=== PATIENT | female | born 1980 | race Caucasian/White ===

== ENCOUNTER 2020-09-30 10:52 | Outpatient (NON) | payer BC, SELFPAY ==
[2020-09-30 14:31] LABS: Influenza Control Positive
== END 2020-09-30 10:53 ==
LOC: ANHCOVIDDT 10:53
PROVIDERS: PCP Internal Medicine; Visit Provider Internal Medicine
DX: R68.89 Other general symptoms and signs (principal)
CPT/HCPCS: 87804

== ENCOUNTER 2020-10-08 10:19 | Outpatient (CLI) | payer BC, SELFPAY ==
--- NOTE | ~2020-10-08 | XR_ITS ---
XR chest 2V 10/08/2020 10:36 Indication: Bronchitis. Procedure: PA and lateral views of the chest Comparison: No prior studies for comparison. Findings: Right lower lobe infiltrates. Left lung clear. No pleural effusion, edema or pneumothorax. Heart size normal. Impression: 1: Right lower lobe infiltrates may represent atelectasis or developing pneumonia. Reviewed, dictated and finalized at location A. [employer]ORATORY TECHNICIAN Impression: 1: Right lower lobe infiltrates may represent atelectasis or developing pneumon ia.
== END 2020-10-08 10:20 | disposition home or self-care (01) ==
PROVIDERS: PCP Internal Medicine; Visit Provider Internal Medicine
DX: J40 Bronchitis, not specified as acute or chronic (principal); U07.1 COVID-19; R91.8 Other nonspecific abnormal finding of lung field
CPT/HCPCS: 71046

== ENCOUNTER 2021-03-26 07:49 | Outpatient (CLI) | payer BC, SELFPAY ==
[2021-03-26 08:34] LABS: Alanine Aminotransferase 27 U/L (4-35); Albumin Level 3.7 g/dL (3.5-5.1); Alkaline Phosphatase 151 U/L (38-126); Anion Gap 4 mmol/L (8-16); Aspartate Amino Transferase 22 U/L (14-36); Bilirubin,Total 0.6 mg/dL (0.2-1.3); Blood Urea Nitrogen 12 mg/dL (7-17); Carbon Dioxide 28 mmol/L (22-30); Chloride 102 mmol/L (98-107); Cholesterol 183 mg/dL (0-200); Estimated Glomerular Filt Rate > 60; Glucose 351 mg/dL (65-105); HDL Direct 42 mg/dL; Potassium 4.3 mmol/L (3.4-5.0); Sodium 134 mmol/L (137-145); Triglycerides 275 mg/dL (<150)
[2021-03-26 08:45] LABS: LDL Cholesterol Direct 93 mg/dL
[2021-03-26 08:46] LABS: Hemoglobin A1C 11.8 % (<5.7)
== END 2021-03-26 07:50 | disposition home or self-care (01) ==
PROVIDERS: PCP Internal Medicine; Visit Provider Internal Medicine
DX: R94.5 Abnormal results of liver function studies (principal); I10 Essential (primary) hypertension; E11.9 Type 2 diabetes mellitus without complications; Z13.220 Encounter for screening for lipoid disorders
CPT/HCPCS: 36415; 80053; 80061; 83036

== ENCOUNTER 2021-05-23 09:34 | Outpatient (CLI) | payer BC, SELFPAY ==
--- NOTE | ~2021-05-23 | XR_ITS ---
EXAMINATION: XR chest 2V EXAM DATE: 05/23/2021 09:52 INDICATION: R05 - Cough, bronchitis. TECHNIQUE: Frontal and lateral projections of the chest obtained and reviewed. Comparison is made to prior examination from 10/08/2020. FINDINGS: The lungs are clear, resolution of previously seen right middle lobe pneumonia. There are no pleural effusions. The cardiomediastinal silhouette is within normal limits. There is no pneumot horax suspected. The bones and soft tissues are unremarkable. IMPRESSION: No acute cardiopulmonary findings. Reviewed, dictated and finalized at location B.
== END 2021-05-23 09:35 | disposition home or self-care (01) ==
LOC: ANHIMG 09:40
PROVIDERS: PCP Internal Medicine; Visit Provider Internal Medicine
DX: R05 Cough (principal); J40 Bronchitis, not specified as acute or chronic
CPT/HCPCS: 71046

== ENCOUNTER 2021-10-07 08:10 | Outpatient (CLI) | payer BC, SELFPAY ==
[2021-10-07 09:07] LABS: Alanine Aminotransferase 19 U/L (4-35); Albumin Level 3.9 g/dL (3.5-5.1); Alkaline Phosphatase 127 U/L (38-126); Anion Gap 10 mmol/L (8-16); Aspartate Amino Transferase 19 U/L (14-36); Bilirubin,Total 1.1 mg/dL (0.2-1.3); Blood Urea Nitrogen 10 mg/dL (7-17); Calcium 8.8 mg/dL (8.4-10.2); Carbon Dioxide 24 mmol/L (22-30); Chloride 99 mmol/L (98-107); Cholesterol 180 mg/dL (0-200); Estimated Glomerular Filt Rate > 60; Glucose 336 mg/dL (65-110); HDL Direct 38 mg/dL; Potassium 3.9 mmol/L (3.4-5.0); Sodium 133 mmol/L (137-145); Triglycerides 228 mg/dL (<150)
[2021-10-07 09:18] LABS: LDL Cholesterol Direct 97 mg/dL
[2021-10-07 11:02] LABS: Hemoglobin A1C 10.9 % (<5.7)
== END 2021-10-07 08:11 | disposition home or self-care (01) ==
PROVIDERS: PCP Internal Medicine; Visit Provider Internal Medicine
DX: E11.9 Type 2 diabetes mellitus without complications (principal); E78.5 Hyperlipidemia, unspecified; I10 Essential (primary) hypertension
CPT/HCPCS: 36415; 80053; 80061; 83036

== ENCOUNTER 2022-11-09 09:50 | Outpatient (CLI) | payer BC, SELFPAY ==
[2022-11-09 10:41] LABS: Alanine Aminotransferase 28 U/L (6-35); Albumin Level 3.5 g/dL (3.5-5.1); Alkaline Phosphatase 119 U/L (38-126); Anion Gap 1 mmol/L (8-16); Aspartate Amino Transferase 27 U/L (14-36); Bilirubin,Total 0.5 mg/dL (0.2-1.3); Blood Urea Nitrogen 8 mg/dL (7-17); Calcium 8.1 mg/dL (8.4-10.2); Carbon Dioxide 31 mmol/L (22-30); Chloride 100 mmol/L (98-107); Cholesterol 163 mg/dL (0-200); Estimated Glomerular Filt Rate > 60; Glucose 364 mg/dL (65-110); HDL Direct 38 mg/dL; Hemoglobin A1C 10.2 % (<5.7); Potassium 4.2 mmol/L (3.4-5.0); Sodium 132 mmol/L (137-145); Triglycerides 221 mg/dL (<150)
[2022-11-09 10:51] LABS: LDL Cholesterol Direct 84 mg/dL
== END 2022-11-09 09:51 | disposition home or self-care (01) ==
LOC: ANHLAB 09:52
PROVIDERS: PCP Internal Medicine; Visit Provider Internal Medicine
DX: Z13.220 Encounter for screening for lipoid disorders (principal); E11.9 Type 2 diabetes mellitus without complications; I10 Essential (primary) hypertension
CPT/HCPCS: 36415; 80053; 80061; 83036

== ENCOUNTER 2023-05-03 10:07 | Outpatient (CLI) | payer BC, SELFPAY ==
[2023-05-03 11:06] LABS: Alanine Aminotransferase 22 U/L (6-35); Albumin Level 3.7 g/dL (3.5-5.1); Alkaline Phosphatase 98 U/L (38-126); Anion Gap 4 mmol/L (8-16); Aspartate Amino Transferase 20 U/L (14-36); Bilirubin,Total 0.7 mg/dL (0.2-1.3); Blood Urea Nitrogen 15 mg/dL (7-17); Calcium 8.2 mg/dL (8.4-10.2); Carbon Dioxide 26 mmol/L (22-30); Chloride 106 mmol/L (98-107); Cholesterol 160 mg/dL (0-200); Estimated Glomerular Filt Rate > 60; Glucose 194 mg/dL (65-110); HDL Direct 40 mg/dL; Potassium 4.2 mmol/L (3.4-5.0); Sodium 136 mmol/L (137-145); Triglycerides 151 mg/dL (<150)
[2023-05-03 11:17] LABS: LDL Cholesterol Direct 92 mg/dL
== END 2023-05-03 10:08 | disposition home or self-care (01) ==
PROVIDERS: PCP Family Medicine; Visit Provider Internal Medicine
DX: E11.9 Type 2 diabetes mellitus without complications (principal); I10 Essential (primary) hypertension; E78.5 Hyperlipidemia, unspecified
CPT/HCPCS: 36415; 80053; 80061

== ENCOUNTER 2023-05-06 09:50 | Outpatient (CLI) | payer BC, SELFPAY ==
[2023-05-06 13:07] LABS: Hemoglobin A1C 7.5 % (<5.7)
== END 2023-05-06 09:51 | disposition home or self-care (01) ==
PROVIDERS: PCP Family Medicine; Visit Provider Podiatrist Foot & Ankle Surgery
DX: E11.42 Type 2 diabetes mellitus with diabetic polyneuropathy (principal)
CPT/HCPCS: 36415; 83036

== ENCOUNTER 2023-05-19 07:51 | Outpatient (CLI) | payer BC, SELFPAY ==
--- NOTE | 2023-05-19 08:04 | ECG_ITS ---
Measurements Intervals [place] Rate: 69 P: 25 [place]: 165 QRS: 13 QRSD: 97 T: 27 QT: 396 QTc: 426 Interpretive Statements SINUS RHYTHM DELAYED PRECORDIAL R/S TRANSITION MINIMAL Q WAVES- INFERIOR LEADS BORDERLINE ECG NO PREVIOUS ECG AVAILABLE FOR COMPARISON Electronically Signed On 05-19-2023 8:14:14 CDT by Kevin Davis D.O.
== END 2023-05-19 07:52 | disposition home or self-care (01) ==
PROVIDERS: PCP Family Medicine; Visit Provider Podiatrist Foot & Ankle Surgery
DX: E11.9 Type 2 diabetes mellitus without complications (principal); R94.31 Abnormal electrocardiogram [ECG] [EKG]
CPT/HCPCS: 93005

== ENCOUNTER 2023-05-21 03:28 | Day surgery (SDC) | payer BC, SELFPAY ==
[2023-05-17 11:17] VITALS: BMI 35.9
--- NOTE | 2023-05-17 11:36 | PC.NURSE ---
Report to the Outpatient Waiting Room, entrance under the green pavilion located off [facility], at time _0600__ on date _05/21/23_. Planned Procedure Time: _0730___. Time changes happen often and if your time is changed the preop area will call you the afternoon before. - You and your visitor will be asked to self-screen and do not enter if you have any COVID symptoms. - A mask is optional within the hospital at this time. Patients may have clear liquids (water, carbonated beverages, clear teas, apple juice) until 3 hours prior to surgery with a maximum of 20 ounces. - No food from midnight until time of surgery. Take ONLY the following medications with a SIP of water the morning of surgery: __ALPRAZOLAM, AMLODIPINE, GABAPENTIN__ DO NOT STOP ANY OF YOUR OTHER PRESCRIPTION MEDICATIONS PRIOR TO SURGERY ?EXCEPT THE FOLLOWING Medications to discontinue per physician __NONE___ Date to take last dose__NONE___ Please no make-up, nail niuean, hairspray, perfume, deodorant, or body powder the day of surgery. No jewelry (including any body piercings) or valuables the day of surgery, leave them at home. Please take a shower or bath the night before, or the morning of, surgery with an antibacterial soap. Wear comfortable, loose fitting clothing. - Jewelry must be removed prior to entering the operating room. Rings and piercings that are not removed may be cut off. - The hospital will not accept responsibility for valuables. - Please leave all valuables, including medications, at home the day of surgery. If you are going home after surgery, a licensed delivery driver/customer service must drive you home. - NO public transportation without another adult if you receive anesthesia. - We recommend that an adult stay with you for 24 hours following discharge. - We also recommend that you do not drive, make important decision, drink alcoholic beverages, or take any drugs that were not prescribed by your health care provider for at least 24 hours after your discharge time. Follow any additional instructions given to you from your surgeon. If you or anyone in your household have experienced Covid symptoms in the past week, please notify your surgeon or the nurse liaison at the phone number below for possible testing. Telephone instructions given to _SANDRA and asked if any additional questions and then verbalized understanding. Patient advised to call surgeon office or pre surgery nurse liaison [phone] if any additional questions.
--- NOTE | 2023-05-20 12:52 | WPDANESEPPF ---
Anes - Initial Pre Proc Eval Procedure: Operation Date: 05/21/23 07:30 Proposed Procedures p Arthrodesis of First Metatarsal Phalangeal Joint Left Foot, Chanelle Shortening Second and Third Metatarsal Left Foot - Rupert Manrique JR, MD s Hammertoe Repair Second and Third Digits Left Foot - Rupert Manrique JR, MD Date/Time: 05/20/23 12:52 Surgeon: Rupert Manrique JR, MD Pre Op Diagnosis: Bunion LT Foot, Metatarsalgia (cont) Patient Data Age: 42 Gender: F Height: 1.83 m Weight: 120 kg Allergies Allergy/AdvReac Type Severity Reaction Status Date / Time bee venom protein (honey bee) Allergy Severe Anaphylaxis Verified 05/21/23 06:17 Latex, Natural Rubber Allergy Severe Anaphylaxis Verified 05/21/23 06:17 melon Allergy Severe Anaphylaxis Verified 05/21/23 06:17 hydrocodone Allergy Mild rash Verified 05/21/23 06:17 propoxyphene Allergy Mild rash Verified 05/21/23 06:17 Home Medications Medication Instructions Recorded Confirmed Type epinephrine 0.3 mg/0.3 mL 0.3 mg (0.3 mL) IM ONCE #2 ea 10/14/21 05/17/23 Rx injection, auto-injector (EpiPen) amlodipine 10 mg tablet 10 mg PO DAILY #90 tabs 03/25/22 05/21/23 Rx metformin 1,000 mg tablet 1,000 mg PO BID #180 tabs 11/27/22 05/21/23 Rx blood-glucose meter (Accu-Chek #1 ea 12/03/22 02/23/23 Rx Guide Glucose Meter) gabapentin 300 mg capsule 300 mg PO QHS 12/03/22 05/21/23 History blood sugar diagnostic (Accu-Chek #100 ea 12/04/22 02/23/23 Rx Guide test strips) lancets (Accu-Chek Softclix #200 ea 12/04/22 02/23/23 Rx Lancets) sitagliptin phosphate 100 mg 100 mg PO DAILY #30 tabs 02/23/23 05/21/23 Rx tablet (Januvia) tirzepatide 2.5 mg/0.5 mL 2.5 mg (0.5 mL) subcut WEEKLY 4 05/06/23 05/17/23 Rx subcutaneous pen injector weeks #2 mL (Mounjaro) alprazolam 2 mg tablet (Xanax) 2 mg PO .COMPLEX #70 tabs 05/20/23 05/21/23 Rx Patient hx anesthesia problems: none Family hx anesthesia problems: none Results Review: All pre-operative results and documents have been reviewed as part of the pre-operative evaluation. [facility] Past Medical History Medical History Close exposure to COVID-19 virus Essential (primary) hypertension Generalized anxiety disorder Neuropathy Type 2 diabetes mellitus without complication, without long-term current use of insulin Family History Family History Mother Patient's mother is in good health Father Patient's father is in good health Sibling Patient's sister is in good health Patient's brother is in good health Other Diabetes mellitus Social History Social History Smoking status: Never smoker Second hand tobacco smoke exposure: Yes Alcohol intake: never Substance use: never Substance use type: does not use Lack of Transportation: No Lack of Food: Never True Current Housing: I Have Housing Concerned About Future Housing: No Difficulty Paying Gas/Electric Bills: No Difficulty Paying for Meds: No Currently Unemployed: No Education: Master's Degree or Higher Difficulty w/ Childcare or Family Care: No Living arrangements: alone Spiritual care concerns: No Anes - Eval Final PreProcedure Day of Procedure 05/20/23 12:52 Patient weight: morbidly obese Heart: regular rate and rhythm Lungs: clear to auscultation and normal air movement Airway: Mallampati scale class II Neurological: alert and oriented Last oral intake: >/= 8 hours ASA classification: III Emergent: no Anesthetic plan: proceed Anesthesia type and monitoring: general LMA Results Review: All pre-operative results and documents have been reviewed as part of the pre-operative evaluation. Informed Consent: The patient's anesthetic plan and its attendant risks and benefits were discussed with the patient/family/POA. Questions were solicited
[2023-05-21] VITALS (10 sets, daily range): BP systolic 120–181; BP diastolic 70–95; PULSE 67–87; RESP 10–20; TEMP 36.3–36.6; O2SAT 99–100
--- NOTE | ~2023-05-21 | XR_ITS ---
EXAMINATION: XR surgery orthopedic DATE: 05/21/2023 09:15 INDICATION: Left foot surgery. TECHNIQUE: 2 intraoperative fluoroscopic views of left foot were obtained. I was not present. Fluoros copy exposure time was 17 seconds. COMPARISON: None. FINDINGS: There are changes of arthrodesis of first metatarsophalangeal joint with dorsal plate and s crews. There is resection of the heads of the second and third metatarsals. There are wires overlying the phalanges and metatarsals of the second and third rays with implants at the proximal interphalan geal joints. IMPRESSION: 1. Surgical changes of left foot. Reviewed, dictated and finalized at location A.
[2023-05-21] MEDS: LACTATED RINGERS 1,000 ML 30 ML IV CONT ×2 (06:45→09:45)
[2023-05-21 06:54] LABS: Glucose Point of Care 188 mg/dl (65-105)
--- NOTE | 2023-05-21 07:18 | WPDHPUPDATE1 ---
History and Physical Update Update Date/Time: 05/21/23 07:18 History and Physical has been reviewed, including an updated exam of the patient. There are NO changes in the patient's condition. Risks, benefits, and alternatives have been discussed and questions answered. Patient agrees to proceed with procedure.
[2023-05-21] MEDS: ceFAZolin 3 GM/D5W 100 ML 100 ML IVPB (07:28)
[2023-05-21] MEDS: LIDOCAINE HCL 2% LOCAL INJ 20 ML VIAL 10 ML INFILTRATE (07:56)
--- NOTE | 2023-05-21 09:35 | W.PM.PROC2 ---
Procedure Note - Detailed Date of Procedure 05/21/23 Pre-op Diagnosis 1. Bunion left foot 2. Metatarsalgia second and third metatarsal phalangeal joints left foot with dislocated digits 3. Hammertoe deformity second and third digits left foot Post-op Diagnosis Same Procedure Performed 1. Arthrodesis of the first metatarsal phalangeal joint left foot 2. Second and third metatarsal head resection left foot 3. Hammertoe repair second and third digits left foot Surgeon Rupert Manrique JR, CARLOS Anesthesia General and Local Indications Painful left forefoot with bunion and dislocated second and third digits Findings significant joint degeneration to the second and third metatarsal phalangeal joints left foot synovitis Description of Procedure PROCEDURE IN DETAIL: Under mild sedation, the patient was brought into the operating room, placed on the operating table in supine yposition. A pneumatic ankle tourniquet was placed about the patient's ipsilateral ankle. Following general anesthesia I performed a Paula block proximal to the first through third metatarsals with 20cc's of 2% Lidocaine and 0.5% Marcaine plain in a one to one mix. Next, the foot was scrubbed, prepped, and draped in the usual aseptic manner. An Esmarch bandage was then used to exsanguinate the patient's foot and the pneumatic ankle tourniquet was then inflated. Surgery began in the following manner: Attention was directed to the dorsal medial aspect of the 1st metatarsophalangeal joint where there was a hallux valgus deformity noted with a prominent first metatarsal phalangeal joint dorsal medially. The incision was made starting along the central shaft of the 1st metatarsal and extending just proximal to the interphalangeal joint of the hallux. The incision was continued deep down through the subcutaneous tissues using sharp and blunt dissection. All bleeders were cauterized as necessary. At this point, the dissection was continued down to the level of the periosteum and capsular structures overlying the 1st metatarsophalangeal joint. A full length periosteum and capsular incision was made just medial to the extensor hallucis longus tendon. The periosteum and capsular structures were freed from the base of the proximal phalanx as well as the distal 1st metatarsal. At this point, the 1st metatarsophalangeal joint was identified. There was loss of articular cartilage to the head of the 1st metatarsal, mostly medially as well as the base of the proximal phalanx worse medially. There was mild broadening and hypertrophy of the 1st metatarsophalangeal joint. Utilizing a sagittal bone saw, the hypertrophied 1st metatarsal was resected dorsally, medially, and laterally. A power bur was used to make sure that there were no rough edges and also to further debride the hypertrophic 1st metatarsal. Next, a rongeur was used to resect the hypertrophic base of the proximal phalanx. At this point, the reamer system for the [email or web address] system was used to denude the degenerative cartilage from the head of the 1st metatarsal as well as the base of the proximal phalanx. The cartilage and subchondral bone were fully debrided utilizing the reamer system until healthy bleeding bone was noted. I flushed the surgery site with copious amounts of sterile saline. Next, a 2-0 drill bit was used to further fenestrate the head of the 1st metatarsal as well as the base of the proximal phalanx in order to promote fusion across the 1st metatarsophalangeal joint. Next, a 0.045 inch K-wire was driven from the medial aspect of the base of the proximal phalanx into the head of the 1st metatarsal in order to serve as temporary fixation. A large steel plate was used to make sure that the hallux was in a rectus position both in the sagittal plane as well as the frontal and transverse plane. Excellent position of the hallux was noted. Next, a CrossCHECK plate was placed atop the 1st metatarsophal
[2023-05-21] MEDS: fentaNYL CITRATE INJ (*CRX) 100 MCG/2 ML VIAL 25 MCG IV PUSH ×3 (10:19→10:27)
[2023-05-21] MEDS: ONDANSETRON INJ 4 MG/2 ML VIAL IV PUSH (10:52)
--- NOTE | 2023-05-21 11:10 | SUR.PHASEII ---
Dr. Gardiner aware of patient's elevated BP. No further treatment at this time.
[2023-05-21] MEDS: SCOPOLAMINE 1.5 MG PATCH TRANSDERM (11:17)
[2023-05-21] MEDS: HALOPERIDOL LACTATE 5 MG/ML VIAL 1 MG IV PUSH (11:22)
[2023-05-21] MEDS: oxyCODONE HCL (*CRX) 5 MG TAB IR PO (11:43)
[2023-05-21 13:30] LABS: Glucose Point of Care 182 mg/dl (65-105)
== END 2023-05-21 12:57 | disposition home or self-care (01) ==
PROVIDERS: PCP Family Medicine; Visit Provider Podiatrist Foot & Ankle Surgery
PROC: (CPT 28750; principal; 2023-05-21 07:30)
PROC: (CPT 28285; 2023-05-21 07:30)
DX: M21.612 Bunion of left foot (principal); M77.42 Metatarsalgia, left foot; M20.42 Other hammer toe(s) (acquired), left foot; M65.872 Other synovitis and tenosynovitis, left ankle and foot; M19.072 Primary osteoarthritis, left ankle and foot; M24.375 Pathological dislocation of left foot, not elsewhere classified; I10 Essential (primary) hypertension; E11.40 Type 2 diabetes mellitus with diabetic neuropathy, unspecified; F41.1 Generalized anxiety disorder; E66.01 Morbid (severe) obesity due to excess calories; Z68.39 Body mass index [BMI] 39.0-39.9, adult; Z79.84 Long term (current) use of oral hypoglycemic drugs; Z79.899 Other long term (current) drug therapy
CPT/HCPCS: 28285 ×2; 28750; 28112 ×2; 82948; 99199; A9270; C1713; C1776; J0690; J1630; J2250; J2405; J2704; J3010; J7120

== ENCOUNTER 2024-02-22 09:19 | Outpatient (CLI) | payer BC, SELFPAY ==
[2024-02-22 10:59] LABS: Hemoglobin A1C 8.3 % (<5.7)
== END 2024-02-22 09:20 | disposition home or self-care (01) ==
LOC: ANHLAB 09:22
PROVIDERS: PCP Internal Medicine; Visit Provider Podiatrist Foot & Ankle Surgery
DX: E11.40 Type 2 diabetes mellitus with diabetic neuropathy, unspecified (principal)
CPT/HCPCS: 36415; 83036

== ENCOUNTER 2024-03-30 13:24 | Outpatient (CLI) | payer BC, SELFPAY ==
--- NOTE | ~2024-03-30 | US_ITS ---
EXAMINATION: US venous doppler [facility] DATE: 03/30/2024 14:26 INDICATION: Bilateral lower limb pain and swelling TECHNIQUE: Grayscale ultrasound images without and with compression and Doppler ultrasound images of the bilateral lower extremity veins were obtained. COMPARISON: None. FINDINGS: The visualized portions of right common femoral vein, profunda (deep) femoral vein, femoral vein, pop liteal vein, posterior tibial veins, peroneal veins, gastrocnemius vein and greater saphenous vein ou tflow are patent. The visualized portions of left common femoral vein, profunda femoral vein, femoral vein, popliteal v ein, posterior tibial veins, gastrocnemius vein and greater saphenous vein outflow are patent. IMPRESSION: 1. No deep venous thrombosis in either lower limb. Reviewed, dictated and finalized at location A.
[2024-03-30 16:03] LABS: Alanine Aminotransferase 22 U/L (6-35); Albumin Level 3.8 g/dL (3.5-5.1); Alkaline Phosphatase 107 U/L (38-126); Anion Gap 5 mmol/L (4-12); Aspartate Amino Transferase 24 U/L (14-36); Bilirubin,Total 0.8 mg/dL (0.2-1.3); Blood Urea Nitrogen 19 mg/dL (7-17); Carbon Dioxide 27 mmol/L (22-30); Chloride 103 mmol/L (98-107); Cholesterol 184 mg/dL (0-200); Estimated Glomerular Filt Rate > 60; Glucose 180 mg/dL (65-110); HDL Direct 44 mg/dL; Potassium 3.9 mmol/L (3.4-5.0); Sodium 135 mmol/L (137-145); Triglycerides 267 mg/dL (<150)
[2024-03-30 16:15] LABS: LDL Cholesterol Direct 102 mg/dL
[2024-03-30 17:55] LABS: Creatinine Urine 161.2 mg/dL
[2024-03-30 18:40] LABS: MALB Creatinine Ratio > 707.2 mg/g (0-30); Microalbumin Urine Random > 1140.0 mg/L (0-16.7)
== END 2024-03-30 13:25 | disposition home or self-care (01) ==
PROVIDERS: PCP Internal Medicine; Visit Provider Internal Medicine
DX: R60.9 Edema, unspecified (principal); E11.9 Type 2 diabetes mellitus without complications
CPT/HCPCS: 36415; 80053; 80061; 82043; 93970

== ENCOUNTER 2024-06-13 08:58 | Outpatient (CLI) | payer BC, SELFPAY | END 2024-06-13 08:59 | disposition home or self-care (01) | LOC: ANHLAB 09:00 | PROVIDERS: PCP Internal Medicine; Visit Provider Internal Medicine | DX: E11.9 Type 2 diabetes mellitus without complications (principal) | CPT/HCPCS: 36415; 83036 ==

== ENCOUNTER 2024-09-07 09:46 | Outpatient (CLI) | payer BC, SELFPAY ==
--- NOTE | 2024-09-07 09:50 | ECG_ITS ---
Test Date: 2024-09-07 10:15:57 Measurements Intervals [place] Rate: 81 P: 21 [place]: 146 QRS: 33 QRSD: 100 T: 29 QT: 374 QTc: 435 Interpretive Statements SINUS RHYTHM POSSIBLE ANTERIOR MYOCARDIAL INFARCTION [30 ms Q WAVE IN V3/V4, OR R < 0.2 mV IN V4], OF INDETERMINATE AGE No previous ECG available for comparison Electronically Signed On 09-07-2024 15:25:29 CDT by Robert Jackson M.D.
[2024-09-07 10:32] LABS: Anion Gap 6 mmol/L (4-12); Blood Urea Nitrogen 19 mg/dL (7-17); Calcium 8.9 mg/dL (8.4-10.2); Carbon Dioxide 28 mmol/L (22-30); Chloride 103 mmol/L (98-107); Estimated Glomerular Filt Rate > 60; Glucose 167 mg/dL (65-110); Sodium 137 mmol/L (137-145)
== END 2024-09-07 09:47 | disposition home or self-care (01) ==
PROVIDERS: Anesthesiology; PCP Internal Medicine; Visit Provider Podiatrist Foot & Ankle Surgery
DX: E11.9 Type 2 diabetes mellitus without complications (principal); Z01.818 Encounter for other preprocedural examination
CPT/HCPCS: 36415; 80048; 93005

== ENCOUNTER 2024-09-08 01:06 | Day surgery (SDC) | payer BC, SELFPAY ==
[2024-09-06 08:37] VITALS: BMI 36.0
--- NOTE | 2024-09-06 08:43 | PC.NURSE ---
Report to the Outpatient Waiting Room, entrance under the green pavilion located off [facility], at time _0600_ on date _[id number]_. Planned Procedure Time: _0730_.? Time changes happen often and if your time is changed the preop area will call you the afternoon before. - You and your visitor will be asked to self-screen and do not enter if you have any COVID symptoms. Please call surgeon if you need to reschedule. - A mask is optional within the hospital at this time. Patients may have clear liquids (water, carbonated beverages, clear teas, apple juice) until 3 hours prior to surgery with a maximum of 20 ounces. - No food from midnight until time of surgery and no smoking Take only the following medications with a SIP of water on the morning of surgery: ___Gabapentin and if needed may take alprazolam____ DO NOT STOP ANY OF YOUR OTHER PRESCRIPTION MEDICATIONS PRIOR TO SURGERY EXCEPT THE FOLLOWING Medications to discontinue per physician __None Date to take last dose Please no make-up, nail emirati, hairspray, perfume, deodorant, or body powder the day of surgery.? No jewelry (including any body piercings) or valuables the day of surgery, leave them at home.? Please take a shower or bath the night before, or the morning of, surgery with an antibacterial soap.? Wear comfortable, loose fitting clothing.? - Jewelry must be removed prior to entering the operating room.? Rings and piercings that are not removed may be cut off. - The hospital will not accept responsibility for valuables.? - Please leave all valuables, including medications, at home the day of surgery. If you are going home after surgery, a licensed hazmat truck driver must drive you home.? - NO public transportation without another adult if you receive anesthesia. - We recommend that an adult stay with you for 24 hours following discharge. - We also recommend that you do not drive, make important decision, drink alcoholic beverages, or take any drugs that were not prescribed by your health care provider for at least 24 hours after your discharge time. Follow any additional instructions given to you from your surgeon. Telephone instructions given to __Bella__and asked if any additional questions and then verbalized understanding. Patient advised to call surgeon office or pre surgery nurse liaison [phone] if any additional questions.
[2024-09-08] VITALS (11 sets, daily range): BP systolic 120–161; BP diastolic 60–93; PULSE 70–86; RESP 12–20; TEMP 36.3–36.6; O2SAT 95–100
--- NOTE | ~2024-09-08 | XR_ITS ---
XR surgery orthopedic Indication: Arthrodesis of the right foot. TECHNIQUE: Fluoroscopy used during Arthrodesis of the right foot. performed by [Rupert Manrique Jr., CARLOS] on 05/21/2023. 17 seconds of fluoroscopy with 4 fluoroscopic images captured. FINDINGS: Correlate with procedure note. IMPRESSION: Fluoroscopy used during Arthrodesis of the right foot.. Reviewed, dictated and finalized at location B.
--- NOTE | 2024-09-08 06:41 | WPDANESEPPF ---
Anes - Initial Pre Proc Eval Procedure: Operation Date: 09/08/24 07:30 Proposed Procedures p Arthrodesis First Metatarsophalangeal Joint Right Foot, - Rupert Manrique Jr., DPM s Resection Second Through Fourth Metatarsal Heads Right Foot, Hammer Toe Repair Second Through Fourth Digits Right Foot - Rupert Manrique Jr., DPM Date/Time: 09/08/24 06:41 Surgeon: Rupert Manrique Jr., DPM Pre Op Diagnosis: bunion rt foot,metatarsalgia,hammer toes 2-4 rt Patient Data Age: 43 Gender: F Height: 1.83 m Weight: 120.5 kg Allergies Allergy/AdvReac Type Severity Reaction Status Date / Time bee venom protein (honey bee) Allergy Severe Anaphylaxis Verified 09/06/24 08:35 Latex, Natural Rubber Allergy Severe Anaphylaxis Verified 09/06/24 08:35 melon Allergy Severe Anaphylaxis Verified 09/06/24 08:35 hydrocodone Allergy Mild rash Verified 09/06/24 08:35 propoxyphene Allergy Mild rash Verified 09/06/24 08:35 Home Medications Medication Instructions Recorded Confirmed Type epinephrine 0.3 mg/0.3 mL 0.3 mg (0.3 mL) IM ONCE #2 ea 10/14/21 09/06/24 Rx injection, auto-injector (EpiPen) blood-glucose meter (Accu-Chek #1 ea 12/03/22 09/06/24 Rx Guide Glucose Meter) blood sugar diagnostic (Accu-Chek #100 ea 12/04/22 09/06/24 Rx Guide test strips) lancets (Accu-Chek Softclix #200 ea 12/04/22 09/06/24 Rx Lancets) metformin 1,000 mg tablet 1,000 mg PO BID #180 tabs 01/18/24 09/06/24 Rx gabapentin 600 mg tablet 600 mg PO .COMPLEX #270 tabs 03/07/24 09/06/24 Rx valsartan 160 mg tablet 160 mg PO BID #60 tabs 03/31/24 09/06/24 Rx clonidine HCl 0.1 mg tablet 0.1 mg PO QHS #30 tabs 04/19/24 09/06/24 Rx semaglutide 2 mg/dose (8 mg/3 mL) 2 mg (0.75 mL) subcut WEEKLY #3 mL 07/18/24 09/06/24 Rx subcutaneous pen injector alprazolam 2 mg tablet (Xanax) 2 mg PO .COMPLEX #70 tabs 09/07/24 Rx furosemide 20 mg tablet (Lasix) 20 mg PO QAM #90 tabs 09/07/24 Rx Patient hx anesthesia problems: none Family hx anesthesia problems: none Results Review: All pre-operative results and documents have been reviewed as part of the pre-operative evaluation. [facility] Past Medical History Medical History Close exposure to COVID-19 virus Essential (primary) hypertension Generalized anxiety disorder Neuropathy Type 2 diabetes mellitus without complication, without long-term current use of insulin Family History Family History Mother Patient's mother is in good health Father Patient's father is in good health Sibling Patient's sister is in good health Patient's brother is in good health Other Diabetes mellitus Social History Social History Smoking status: Never smoker Second hand tobacco smoke exposure: Yes Alcohol intake: current Substance use: never Substance use type: does not use Lack of Transportation: No Lack of Food: Never True Current Housing: I Have Housing Concerned About Future Housing: No Difficulty Paying Gas/Electric Bills: No Difficulty Paying for Meds: No Currently Unemployed: No Education: Master's Degree or Higher Difficulty w/ Childcare or Family Care: No Living arrangements: with family Spiritual care concerns: No Anes - Eval Final PreProcedure Day of Procedure 09/08/24 06:41 Patient weight: obese Heart: regular rate and rhythm Lungs: clear to auscultation Airway: Mallampati scale class II Neurological: alert and oriented Last oral intake: >/= 8 hours ASA classification: III Emergent: no Anesthetic plan: proceed Anesthesia type and monitoring: general LMA and standard monitoring Results Review: All pre-operative results and documents have been reviewed as part of the pre-operative evaluation. Informed Consent: The patient's anesthetic plan and its attendant risks and benefits were discussed with the patient/family/POA. Questions were solicited and answers provided to the satisfaction of the patient/family/POA.
[2024-09-08] MEDS: LACTATED RINGERS 1,000 ML 30 ML IV CONT ×2 (07:00→10:20)
[2024-09-08 07:02] LABS: Glucose Point of Care 157 mg/dl (65-105)
--- NOTE | 2024-09-08 07:15 | WPDHPUPDATE1 ---
History and Physical Update Update Date/Time: 09/08/24 07:15 History and Physical has been reviewed, including an updated exam of the patient. There are NO changes in the patient's condition. Risks, benefits, and alternatives have been discussed and questions answered. Patient agrees to proceed with procedure.
[2024-09-08 07:23] LABS: BEDSIDEPREGUCG Negative (Negative)
[2024-09-08] MEDS: ceFAZolin 3 GM/D5W 100 ML 100 ML IVPB (07:24)
[2024-09-08] MEDS: LIDOCAINE HCL 2% LOCAL INJ 20 ML VIAL 10 ML INFILTRATE (08:29)
--- NOTE | 2024-09-08 10:24 | W.PM.PROC2 ---
Procedure Note - Detailed Date of Procedure 09/08/24 Pre-op Diagnosis 1. Bunion right foot 2. Metatarsalgia right foot 3. 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 Arthrodesis of the first metatarsal phalangeal joint right foot 2. 2nd though 4th metatarsal head resection right foot 3. Hammertoe repair second through fifth digits right foot Surgeon Rupert Manrique Jr., DPM Anesthesia General and Local Indications Rheumatoid foot right foot Description of Procedure PROCEDURE IN DETAIL:? Under mild sedation, the patient was brought into the operating room, placed on the operating table in supine yposition.? A pneumatic ankle tourniquet was placed about the patient's ipsilateral ankle.? Following general anesthesia I performed a Paula block proximal to the first through fifth rays of the right foot with 20cc's of 2% Lidocaine and 0.5% Marcaine plain in a one to one mix. Next, the foot was? scrubbed, prepped, and draped in the usual aseptic manner.? An Esmarch bandage was then used to exsanguinate the patient's? foot and the pneumatic ankle tourniquet was then inflated. ? Surgery began in the following manner:? Attention was directed to the dorsal medial aspect of the 1st metatarsophalangeal joint where there was a ?hallux valgus deformity noted with a prominent first metatarsal phalangeal joint dorsal medially.? The incision was made starting along the central shaft of the 1st metatarsal and extending just proximal to the interphalangeal joint of the? hallux.? The incision was continued deep down through the subcutaneous tissues using sharp and blunt dissection.? All bleeders were cauterized as necessary.? At this point, the dissection was continued down to the level of the periosteum and capsular structures overlying the 1st metatarsophalangeal joint.? A full length periosteum and capsular incision was made just medial to the extensor hallucis longus tendon.? The periosteum and capsular structures were freed from the base of the proximal phalanx as well as the distal 1st metatarsal.? At this point, the 1st metatarsophalangeal joint was identified.? There was loss of articular cartilage to the head of the 1st metatarsal, mostly medially as well as the base of the proximal phalanx worse medially.? There was mild broadening and hypertrophy of the 1st metatarsophalangeal joint.? Utilizing a sagittal bone saw, the hypertrophied 1st metatarsal was resected dorsally, medially, and laterally.? A power bur was used to make sure that there were no rough edges and also to further debride the hypertrophic 1st metatarsal.? Next, a rongeur was used to resect the hypertrophic base of the proximal phalanx.? At this point, the reamer system for the Arthrex Maxforce plate system was used to denude the degenerative cartilage from the head of the 1st metatarsal as well as the base of the proximal phalanx.? The cartilage and subchondral bone were fully debrided utilizing the reamer system until healthy bleeding bone was noted. I flushed the surgery site with copious amounts of sterile saline.? Next, a 2-0 drill bit was used to further fenestrate the head of the 1st metatarsal as well as the base of the proximal phalanx in order to promote fusion across the 1st metatarsophalangeal joint.? Next, a 0.045 inch K-wire was driven from the medial aspect of the base of the proximal phalanx into the head of the 1st metatarsal in order to serve as temporary fixation and as a guide wire for an Arthrex PT 3.0mm cannulated screw. ? A large steel plate was used to make sure that the hallux was in a rectus position both in the sagittal plane as well as the frontal and transverse plane.? Excellent position of the hallux was noted, the 3.0 screw was driven across the 1st MP with excellent compression noted.? Next, the Arthrex MTP Long plate was placed atop the 1st metatarsophalangeal joint held in position with Lizemores wires.? ? Utilizing standard principles and techniques, the 2 distal drill holes were drilled and three 3.0 mm fully-threaded locking screws were driven from dorsal to plantar holding the distal aspect of the plate intact. At this point, the Maxforce compression system was utilized from dorsal distal to proximal plantar across the 1st metatarsophalangeal joint with excellent compression noted intraoperatively and fluoroscopically. Next, a 3.0mm locking screw was used to further compress the joint along the oblong dynamic compression screw slot. Next, the remaining 2 proximal drill holes were drilled from dorsal to plantar across and two 3.0 mm locking screws were driven form dorsal to plantar. The wound site was then flushed with copious amounts of sterile saline. Fluoroscopy was used to make sure that the plate was appropriately aligned and oriented and also to make sure that the screws were of appropriate length and orientation. Excellent position of the 1st metatarsophalangeal joint was visualized in all planes. Next, the periosteum and capsular structures were reapproximated with 3-0 Vicryl. Next, the subcutaneous structures were reapproximated with 4-0 Vicryl. Next, the skin was reapproximated and coapted utilizing 4-0 Monocryl in running subcuticular suture fashion technique. Attention was directed to the dorsal aspect of the 2nd and 4th intermetatarsal space where a 4cm cm incision was made.? The incision was continued deep down through the subcutaneous tissues using sharp and blunt dissection.? All bleeders were cauterized as necessary. ? A full-length periosteal incision was made overlying the 2nd metatarsal distally.?Once the metatarsal phalangeal joints were visualized there was significant joint degeneration to the second metatarsal phalangeal joints with hypertrophic synovitis and severe contracture to the joint.? A McGlammary elevator was used to free the plantar aspect of the joint. I adequately resected the head of the metatarsal and placed on the back table and performed the same procedure for the 2nd though 4th metatarsals. The wound site was then flushed with copious amounts of sterile saline.?the same procedure A transverse tenotomy was created dorsal to the proximal interphalangeal joint, next the head of the proximal phalanx and base of the middle phalanx was resected with a saw blade. Next, I drove a 0.045 k wire though the 2nd though 4th digits under fluoroscopic guidance and into the distal corresponding metatarsals. Fluoroscopy was used to make sure that the digit and implant were appropriately positioned and the K wire was within the canal of the metatarsals. I reapproximated the extensor tendon over the fused proximal phalangeal joint of the digits with 3.0 Vicryl. I reapproximated the subcutaneous structures with 4.0 Vicryl and the skin with 4-0 Prolene in simple interrupted suture technique. I duplicated the exact procedure for the 5th digits only that the K wire was noted utilized to stabilize the digit. ? Upon completion of the procedure, the incisions were dressed with Steri-Strips, Adaptic, 4x4s, Kerlix, and Coban.? The pneumatic ankle tourniquet was then deflated and a prompt hyperemic response was noted to all digits of the foot.? A posterior splint was then applied to the affected lower extremity.? It is important to note that Dr. Manrique was present throughout the procedure. ? The patient did very well with the procedure and the anesthesia.? The patient was transferred to the recovery room with vital signs stable and vascular status intact to all toes of the foot.? Following a period of postoperative monitoring, the patient will be discharged home on the following written and oral postoperative instructions: 1. Keep the dressing clean, dry, and intact. 2. The patient to be strictly nonweightbearing with a knee scooter. 3. The patient should ice and elevate the foot when at rest. 4. The patient should contact Dr. Manrique for all postop care and if any problems should arise. 5. Prescriptions were written for Percocet 5/325, dispensed 40 to be taken 1 p.o. q.4-6 hours as needed for severe pain.? Furthermore, the patient should also take Xarelto 10 mg to be taken 1 p.o. daily starting 24 hours after surgery to prevent DVT for 14 days followed by one 325 mg aspirin until walking is re-initiated. Implants Arthrex Maxforce Large Plate with 3.0 locking screws and one Kreulock screws One Arthrex 3.0 Headed Cannulated PT screw 3(0.045 K wires) Estimated Blood Loss 1 Drains No Packing No Pathology None sent Complications No immediate complications Condition Stable Disposition Same day
[2024-09-08 10:26] LABS: Glucose Point of Care 124 mg/dl (65-105)
[2024-09-08] MEDS: fentaNYL CITRATE INJ (*CRX) 100 MCG/2 ML VIAL 25 MCG IV PUSH ×6 (10:28→11:01)
== END 2024-09-08 12:51 | disposition home or self-care (01) ==
PROVIDERS: PCP Internal Medicine; Visit Provider Podiatrist Foot & Ankle Surgery
PROC: (CPT 28750; principal; 2024-09-08 07:30)
PROC: (CPT 28104; 2024-09-08 07:30)
DX: M21.611 Bunion of right foot (principal); M20.41 Other hammer toe(s) (acquired), right foot; M77.41 Metatarsalgia, right foot; I10 Essential (primary) hypertension; E11.42 Type 2 diabetes mellitus with diabetic polyneuropathy; F41.9 Anxiety disorder, unspecified; E66.9 Obesity, unspecified; Z68.41 Body mass index [BMI] 40.0-44.9, adult; Z79.84 Long term (current) use of oral hypoglycemic drugs; Z79.85 Long-term (current) use of injectable non-insulin antidiabetic drugs
CPT/HCPCS: 28750; 28112; 28285 ×4; 82948; 99199; C1713; C1769; J0690; J2003; J2250; J2405; J2704; J3010; J7120

== ENCOUNTER 2025-03-19 16:15 | Outpatient (CLI) | payer BC, SELFPAY ==
--- NOTE | ~2025-03-19 | XR_ITS ---
Left Knee Technique: AP, lateral, and sunrise views were obtained. Clinical History: Pain Findings: No fracture or dislocation is seen. Osseous alignment is anatomic. There is moderate tricom partmental degenerative change.. Soft tissues are unremarkable. No joint effusion is seen. Impression: Moderate tricompartmental degenerative change. Reviewed, dictated and finalized at [facility]. Impression: Moderate tricompartmental degenerative change.
--- OUTSIDE RECORDS SUMMARY | 2025-03-19 16:41 | XMS_ITS | Clinical Summary ---
Author Organization [facility] Address [address] [place] [address] Care Team Providers Care Social Science Research Assistant Name Role Phone Wally Mazariegos MD Primary Care Provider [phone] Source Comments [facility],non-owned Affiliates and Associated Physician Practices is amultiple site organization consisting of ambulatory clinics and hospital sitesin [place], [place], [place] and [place]. This disclosure is being madepursuant to the Care Everywhere program and may not contain all information available regarding this patient. Last updated 18.[facility] Allergies Active Allergy Reactions Criticality Noted Date Comments Propoxyphene N-Apap Urticaria Medium 08/21/2020 Social History Tobacco Use Types Packs/Day Years Used Date Smoking Tobacco: Never Assessed Comments Unknown Sex and Gender Information Value Date Recorded Sex Assigned at Not on file Legal Sex Female 1:41 PM CDT Gender Identity Not on file Sexual Orientation Not on file Plan of Treatment Health Maintenance Due Date Last Done Comments LIPID TESTING 1980 MAMMOGRAM 1980 HIV SCREENING 1995 HEPATITIS C SCREENING 10/19/1998 DTAP/TDAP/TD VACCINES (1 - Tdap) 1999 HEPATITIS B VACCINE (1 of 3 - 19+ 3-dose series) 1999 COVID-19 VACCINE ( - 2023-2 5 season) 2024 DEPRESSION SCREENING 11/15/2024 INFLUENZA VACCINE (Season Ended) 2025 ZOSTER VACCINE (1 of 2) 2030 HIB VACCINE Aged Out No longer eligi ble based on patient's age to complete this topic HPV VACCINE Aged Out No longer eligi ble based on patient's age to complete this topic MENINGOCOCCAL (Group B) VACC INE SHARED DECISION-MAKING Aged Out No longer eligibl e based on patient's age to complete this topic MENINGOCOCCAL GROUPS A/C/Y/W VACCINE Aged Out No longer eligible b ased on patient's age to complete this topic PNEUMOCOCCAL VACCINE Aged Out No long er eligible based on patient's age to complete this topic Insurance [facility] [address] [employer]IC [employer] Care Teams Social Science Research Assistant Relationship Specialty Start Date End Date Wally Mazariegos MD [address] [facility] [address] [place] [phone] PCP - General Internal Medicine 02/01/15
== END 2025-03-19 16:16 | disposition home or self-care (01) ==
PROVIDERS: PCP Internal Medicine; Visit Provider Internal Medicine
DX: M17.12 Unilateral primary osteoarthritis, left knee (principal)
CPT/HCPCS: 73562

== ENCOUNTER 2025-05-11 07:09 | Outpatient (CLI) | payer BC, SELFPAY ==
[2025-05-11 08:19] LABS: Basophils Absolute Auto 0.1 K/mm3 (0.0-0.1); Basophils Percent Auto 1.5 % (0.2-1.2); Eosinophils Absolute Auto 0.3 K/mm3 (0-0.3); Eosinophils Percent Auto 4.6 % (0-4.4); Hematocrit 33.3 % (37.0-47.0); Hemoglobin 10.6 g/dL (12.0-15.0); Immature Granulocyte Absolute 0.04 K/mm3 (0.00-0.031); Immature Granulocyte Percent A 0.7 % (0-0.5); Lymphocytes Absolute Auto 2.02 K/mm3 (0.9-3.2); Lymphocytes Percent Auto 34.2 % (18.3-44.2); Mean Corpuscular HGB Conc 31.8 g/dl (32-36); Mean Corpuscular Hemoglobin 25.4 pg (26-34); Mean Corpuscular Volume 79.9 fl (80-100); Mean Platelet Volume 10.7 fl (7.4-10.4); Monocytes Absolute Auto 0.4 K/mm3 (0.1-0.6); Monocytes Percent Auto 7.1 % (2.6-8.5); Neutrophils Absolute Auto 3.1 K/mm3 (1.3-6.7); Neutrophils Percent Auto 51.9 % (45.5-73.1); Platelet Count Result 246 k/mm3 (150-375); Red Blood Count 4.17 M/mm3 (4.2-5.4); Red Cell Distribution Width 13.5 % (11.5-14.5); White Blood Count 5.9 K/mm3 (4.5-10.0)
[2025-05-11 08:32] LABS: Alanine Aminotransferase 25 U/L (6-35); Albumin Level 3.2 g/dL (3.5-5.1); Alkaline Phosphatase 128 U/L (38-126); Anion Gap 7 mmol/L (4-12); Aspartate Amino Transferase 25 U/L (14-36); Bilirubin,Total 0.4 mg/dL (0.2-1.3); Blood Urea Nitrogen 23 mg/dL (7-17); Calcium 8.9 mg/dL (8.4-10.2); Carbon Dioxide 25 mmol/L (22-30); Chloride 104 mmol/L (98-107); Cholesterol 185 mg/dL (0-200); Estimated Glomerular Filt Rate > 60; Glucose 220 mg/dL (65-110); HDL Direct 42 mg/dL; Sodium 136 mmol/L (137-145); Triglycerides 226 mg/dL (<150)
[2025-05-11 08:43] LABS: LDL Cholesterol Direct 82 mg/dL
[2025-05-11 10:08] LABS: Creatinine Urine 90.4 mg/dL
[2025-05-11 12:04] LABS: Microalbumin Urine Random > 1140.0 mg/L (0-16.7)
[2025-05-11 12:47] LABS: Hemoglobin A1C. 10.3 % (<5.7)
== END 2025-05-11 07:10 | disposition home or self-care (01) ==
LOC: ANHLAB 07:13
PROVIDERS: PCP Internal Medicine; Visit Provider Internal Medicine
DX: E11.9 Type 2 diabetes mellitus without complications (principal); I10 Essential (primary) hypertension; E78.5 Hyperlipidemia, unspecified; E66.01 Morbid (severe) obesity due to excess calories
CPT/HCPCS: 36415; 80053; 80061; 82043; 83036; 84443; 85025

== ENCOUNTER 2025-05-17 12:34 | Outpatient (CLI) | payer BC, SELFPAY ==
--- OUTSIDE RECORDS SUMMARY | 2025-05-17 12:37 | XMS_ITS | Clinical Summary ---
Author Organization [facility] Address [address] [place] [place] [address] Care Team Providers Care Sole Rounding Machine Operator Name Role Phone Wally Mazariegos MD Primary Care Provider [phone] Source Comments [facility],non-owned Affiliates and Associated Physician Practices is amultiple site organization consisting of ambulatory clinics and hospital sitesin [place], [place], [place] and [place]. This disclosure is being madepursuant to the Care Everywhere program and may not contain all information available regarding this patient. Last updated 18.[facility] Allergies Active Allergy Reactions Criticality Noted Date [...] patient's age to complete this topic Insurance [facility] [address] [employer] Care Teams Sole Rounding Machine Operator Relationship Specialty Start Date End Date Wally Mazariegos MD [address] [facility] [address] [place] [phone] PCP - General Internal Medicine 02/01/15
[2025-05-17 13:25] LABS: Magnesium 1.8 mg/dL (1.6-2.3)
[2025-05-17 13:32] LABS: Iron 55 ug/dL (37-170)
[2025-05-17 13:43] LABS: Percent Iron Saturation 14 % (20-50)
[2025-05-17 14:10] LABS: Ferritin 11.10 ng/mL (6.24-137)
== END 2025-05-17 12:35 | disposition home or self-care (01) ==
PROVIDERS: PCP Internal Medicine; Visit Provider Internal Medicine
DX: D64.9 Anemia, unspecified (principal); G47.62 Sleep related leg cramps
CPT/HCPCS: 36415; 82728; 83540; 83550; 83735